=== PATIENT | female | born 1940 | race Caucasian/White ===

== ENCOUNTER 2020-07-08 19:00 | Outpatient (REF) | payer MEDICARE, SELFPAY ==
[2020-07-08 22:13] LABS: HCT 38.3 % (36.0-46.0); HGB 11.9 g/dL (11.2-15.7); MCH 28.6 pg (27.0-33.0); MCHC 31.1 % (32.0-36.0); MCV 92.1 fL (80-95); MPV 11.3 fL (8.0-11.0); Platelet Count 187 10^3/uL (130-400); RBC 4.16 10^6/uL (3.93-5.22); RDW 12.2 % (11.7-14.6); RDW-SD 41.4 fL; WBC 6.35 10^3/uL (4.4-10.8)
[2020-07-08 22:35] LABS: Anion Gap 4.2 mmol/L (3-11); CO2 36.8 mmol/L (21.0-32.0); CREATININE 0.6 mg/dL (0.55-1.02); Calcium 8.6 mg/dL (8.5-10.1); Calculated LDL 71 mg/dL (<100); Chloride 103 mmol/L (98-107); Cholesterol 144 mg/dL (<200); Glucose 128 mg/dL (74-106); HDL Cholesterol 55 mg/dL (40-60); Potassium 4.1 mmol/L (3.5-5.1); Sodium 144 mmol/L (136-145); Triglyceride 90 mg/dL (<150)
[2020-07-08 22:47] LABS: BUN 14 mg/dL (7-18)
== END 2020-07-08 19:01 | disposition home or self-care (01) ==
LOC: NCHCN 19:00
PROVIDERS: PCP Family Medicine; Visit Provider Nurse Practitioner Family
DX: I10 Essential (primary) hypertension (principal); E78.5 Hyperlipidemia, unspecified; Z86.2 Personal history of diseases of the blood and blood-forming organs and certain disorders involving the immune mechanism
CPT/HCPCS: 80048; 80061; 85027

== ENCOUNTER 2021-02-20 16:04 | Outpatient (REF) | payer MEDICARE, SELFPAY ==
[2021-02-20 21:33] LABS: Anion Gap 5.2 mmol/L (3-11); BUN 14 mg/dL (7-18); CO2 32.8 mmol/L (21.0-32.0); CREATININE 0.6 mg/dL (0.55-1.02); Chloride 103 mmol/L (98-107); Glucose 109 mg/dL (74-106); Potassium 4.4 mmol/L (3.5-5.1); Sodium 141 mmol/L (136-145)
== END 2021-02-20 16:05 | disposition home or self-care (01) ==
LOC: NCHCN 16:04
PROVIDERS: PCP Family Medicine; Visit Provider Family Medicine
DX: J44.9 Chronic obstructive pulmonary disease, unspecified (principal)
CPT/HCPCS: 80048

== ENCOUNTER 2021-12-02 17:50 | Outpatient (REF) | payer MEDICARE, SELFPAY ==
[2021-12-02 21:28] LABS: HCT 38.6 % (36.0-46.0); MCH 28.3 pg (27.0-33.0); MCHC 31.1 % (32.0-36.0); MCV 91 fL (80-95); MPV 11.4 fL (8.0-11.0); Platelet Count 177 10^3/uL (130-400); RBC 4.24 10^6/uL (3.93-5.22); RDW 13.2 % (11.7-14.6); WBC 12.95 10^3/uL (4.4-10.8)
[2021-12-02 22:12] LABS: Anion Gap 4.7 mmol/L (3-11); BUN 19 mg/dL (7-18); CO2 31.3 mmol/L (21.0-32.0); CREATININE 0.8 mg/dL (0.55-1.02); Chloride 100 mmol/L (98-107); Estimated GFR 73.52 (mL/min/1.73m2); Glucose 120 mg/dL (74-106); Potassium 4.5 mmol/L (3.5-5.1); Sodium 136 mmol/L (136-145)
== END 2021-12-02 17:51 | disposition home or self-care (01) ==
LOC: NCHCN 17:50
PROVIDERS: PCP Family Medicine; Visit Provider Nurse Practitioner Family
DX: J44.9 Chronic obstructive pulmonary disease, unspecified (principal); J96.92 Respiratory failure, unspecified with hypercapnia
CPT/HCPCS: 80048; 85027

== ENCOUNTER 2022-05-19 16:24 | Outpatient (REF) | payer MEDICARE, SELFPAY ==
--- OUTSIDE RECORDS SUMMARY | 2022-05-19 16:32 | XMS_ITS | CCD ---
Author Name Unknown Address [address] [place] [address] [id number] Organization Unknown Address [address], [place] [id number] Care Team Providers Care Information Security Specialist Name Role Phone AUGUSTA BARAHONA Attending Physician [phone] VINI MARTINEZ Er Physician 2 [phone] UHSSEIN OSUNA (Secondary) Physician 8 [phone] GANGA Griggs Registered Nurse [phone] Vital Signs Vital Sign Value Unit Date/Time Recent/Initial ? BMI (Body Mass Index) 25.38 kg/m^2 01/14/2021 12: 47 Initial VS Weight Measured 143.3 lbs 01/14/2021 12:47 Ini tial VS Height 63 in 01/14/2021 12:47 Initial VS BSA (Body Surface Area) 1.7 m^2 01/14/2021 1 2:47 Initial VS BP Systolic 144 mmHg 01/14/2021 12:47 Initial VS BP Diastolic 65 mmHg 01/14/2021 12:47 Initia l VS Respiratory Rate 20 bpm 01/14/2021 12:47 In itial VS Heart Rate 117 bpm 01/14/2021 12:47 Initial VS O2 % BldC Oximetry 99 % 01/14/2021 12:47 Initial VS Body Temperature 39 degrees 01/14/2021 12:47 In itial VS BMI (Body Mass Index) 25.33 kg/m^2 01/15/2021 10: 39 Most Recent VS Weight Measured 143 lbs 01/15/2021 10:39 Mos t Recent VS Height 63 in 01/15/2021 10:39 Most Rec ent VS BSA (Body Surface Area) 1.7 m^2 01/15/2021 1 0:39 Most Recent VS BP Systolic 153 mmHg 01/17/2021 07:28 Most Re cent VS BP Diastolic 81 mmHg 01/17/2021 07:28 Most R ecent VS Respiratory Rate 18 bpm 01/17/2021 07:[address] Recent VS Heart Rate 94 bpm 01/17/2021 07:28 Most Rec ent VS O2 % BldC Oximetry 95 % 01/17/2021 07:28 Most Recent VS Body Temperature 36.5 degrees 01/17/2021 07:[address] Recent VS Allergies Allergy Code Allergy Type Reaction Status TETRACYCLINE 34567 Drug allergy HEAD ITCHED Active Procedures Unknown or Not Available. History of Immunizations Immunization Code Date Influenza, high dose seasonal 135 Problems Problem Code Start Date Resolved Date Status Acute and chronic respirator y failure with hypercapnia 1722402346115 Active Severe COPD 445825274 Active COPD with exacerbation 057534110 Ac tive GI bleeding 14703360 01/14/2021 Resolved Anemia 537591166 01/14/2021 Resolved Diverticulitis 626568075 01/14/2021 Resolved Chronic obstructive pulmonar y disease 24887598 01/14/2021 Resolved Carcinoma of lung 204729590 01/14/2021 Resolve d Carotid atherosclerosis 419372456 01/14/2021 R esolved Hyperlipidemia 54963818 01/14/2021 Resolved Obstructive chronic bronchit is with (acute) exacerbation 152089470 01/14/2021 Resolved Osteoporosis 11335655 01/14/2021 Resolved Personal hx of colon polyps 950868109 01/15/20 21 Resolved Generalized anxiety disorder 58276038 021 Resolved Mild cognitive impairment, so stated 927347650 01/14/2021 Resolved Dependence on continuous supplemental oxygen 09519170690811 01/14/2021 Resolved Personal hx of pneumonia 162339804 01/14/2021 Resolved Vitamin B12 deficiency 705432623 01/14/2021 Re solved Atypical CP 366884243 01/14/2021 Resolved Chronic respiratory failure with hypercapnia 806630806 11/11/2021 Resolved Peripheral vascular disease 901251977 11/12/19 22 Resolved Carotid artery disease 531479907 11/11/2021 Re solved Chronic back pain 806117810 01/14/2021 Resolve d Depression 10213941 01/14/2021 Resolved Hypertension 64419580 01/14/2021 Resolved Results BASIC METABOLIC PANEL (BMP) - Collect Date/Time: 01/16/2021 06:45 Test Name Code Test Result Test Units Test Ref Rang e GLUCOSE 2345-7 112 mg/dL L=70 H=116 BUN 3094-0 12 mg/dL L=6 H=25 CREATININE 2160-0 0.54 mg/dL L=0.51 H=0.95 SODIUM SERUM 2951-2 142 mmol/L L=136 H=145 POTASSIUM SERUM 2823-3 3.8 mmol/L L=3.4 H=5 .2 CHLORIDE SERUM 2075-0 100 mmol/L L=96 H=110 CARBON DIOXIDE (CO2) 2028-9 42 mmol/L L=22 H=34 ANION GAP 46067-9 0.3 mmol/L CALCIUM SERUM 18116-8 9.1 mg/dL L=8.2 H=10. 2 AGE 80 years eGFR (non-Afr.Amer.) 66628-0 108 mL/min eGFR (Afr-Indonesian) 92540-5 >120 mL/min BASIC METABOLIC PANEL (BMP) - Collect Date/Time: 01/15/2021 06:20 Test Name Code Test Result Test Units Test Ref Rang e GLUCOSE 2345-7 121 mg/dL L=70 H=116 BUN 3094-0 16 mg/dL L=6 H=25 CREATININE 2160-0 0.53 mg/dL L=0.51 H=0.95 SODIUM SERUM 2951-2 144 mmol/L L=136 H=145 POTASSIUM SERUM 2823-3 4.0 mmol/L L=3.4 H=5 .2 CHLORIDE SERUM 2075-0 103 mmol/L L=96 H=110 CARBON DIOXIDE (CO2) 2028-9 41 mmol/L L=22 H=34 ANION GAP 66111-7 0.2 mmol/L CALCIUM SERUM 01020-8 8.9 mg/dL L=8.2 H=10. 2 AGE 80 years eGFR (non-Afr.Amer.) 48221-5 111 mL/min eGFR (Afr-Indonesian) 51180-2 >120 mL/min COMPREHENSIVE METABOLIC PANE L (CMP) - Collect Date/Time: 01/14/2021 12:55 Test Name Code Test Result Test Units Test Ref Rang e GLUCOSE 2345-7 164 mg/dL L=70 H=116 BUN 3094-0 28 mg/dL L=6 H=25 CREATININE 2160-0 0.73 mg/dL L=0.51 H=0.95 SODIUM SERUM 2951-2 141 mmol/L L=136 H=145 POTASSIUM SERUM 2823-3 3.7 mmol/L L=3.4 H=5 .2 CHLORIDE SERUM 2075-0 99 mmol/L L=96 H=110 CARBON DIOXIDE (CO2) 2028-9 44 mmol/L L=22 H=34 ANION GAP 56349-9 -1.7 mmol/L CALCIUM SERUM 69140-6 9.2 mg/dL L=8.2 H=10. 2 BILIRUBIN TOTAL 1975-2 0.7 mg/dL L=0.0 H=1 .3 ALK. PHOS. 6768-6 95 U/L L=46 H=116 SGOT (AST) 1920-8 20 U/L L=15 H=37 SGPT (ALT) 1742-6 31 U/L L=12 H=78 TOTAL PROTEIN 2885-2 7.5 gm/dL L=6.0 H=8.0 ALBUMIN 1751-7 3.2 gm/dL L=3.4 H=5.0 AGE 80 years eGFR (non-Afr.Amer.) 78777-1 77 mL/min eGFR (Afr-Indonesian) 94742-3 93 mL/min LACTIC ACID - Collect Date/T josh: 01/14/2021 12:55 Test Name Code Test Result Test Units Test Ref Rang e LACTIC ACID 52802-3 2.2 mmol/L L=0.7 H=2.1 TROPONIN-I ADM.* - Collect D ate/Time: 01/14/2021 12:55 Test Name Code Test Result Test Units Test Ref Rang e TROPONIN-I 92196-6 <0.017 ng/mL L=0.000 H=0.06 0 TSH THYROID STIMULATING HORM ONE* - Collect Date/Time: 01/14/2021 12:55 Test Name Code Test Result Test Units Test Ref Rang e TSH 3014-8 2.885 uIU/mL L=0.360 H=3.74 0 CBC W/ DIFFERENTIAL* - Colle ct Date/Time: 01/15/2021 06:20 Test Name Code Test Result Test Units Test Ref Rang e WBC 6690-2 8.43 th/cmm L=5.00 H=10.00 NEUT % 78.3 % L=40.0 H=80.0 LYMPH % 13.5 % L=10.0 H=50.0 MONO % 04481-0 6.0 % L=2.0 H=12.0 EOS % 1.2 % L=0.0 H=8.0 BASO % 0.4 % L=0.0 H=3.0 IG % 2514-8 0.6 % L=0.0 H=1.1 NRBC % 32832-6 0.0 % L=0.0 H=0.0 NEUT abs count 751-8 6.6 th/cmm L=1.6 H=8. 4 LYMPH abs count 731-0 1.1 th/cmm L=1.5 H=4 .0 MONO abs count 742-7 0.5 th/cmm L=0.2 H=1. 0 EOS abs count 711-2 0.1 th/cmm L=0.0 H=0.5 BASO abs count 704-7 0.0 th/cmm L=0.0 H=0. 2 IG abs count 18721-0 0.1 th/cmm L=0.0 H=0.1 NRBC abs count 37227-9 0.0 mil/cmm L=0.0 H=0. 0 RBC 789-8 4.15 mil/cmm L=3.90 H=5.40 HEMOGLOBIN 718-7 11.6 gm/dL L=12.0 H=16.0 HEMATOCRIT 4544-3 40 % L=37 H=47 MCV 787-2 96 fL L=82 H=92 MCH 785-6 28.0 pg L=27.0 H=31.0 MCHC 786-4 29.1 % L=32.0 H=36.0 RDW-SD 788-0 43.2 fL L=39.0 H=49.0 PLATELET COUNT 777-3 192 th/cmm L=150 H=45 0 CBC W/ DIFFERENTIAL* - [facility] ct Date/Time: 01/14/2021 12:55 Test Name Code Test Result Test Units Test Ref Rang e WBC 6690-2 11.42 th/cmm L=5.00 H=10.00 NEUT % 81.8 % L=40.0 H=80.0 LYMPH % 10.1 % L=10.0 H=50.0 MONO % 68439-8 7.0 % L=2.0 H=12.0 EOS % 0.4 % L=0.0 H=8.0 BASO % 0.4 % L=0.0 H=3.0 IG % 2514-8 0.3 % L=0.0 H=1.1 NRBC % 80803-5 0.0 % L=0.0 H=0.0 NEUT abs count 751-8 9.4 th/cmm L=1.6 H=8. 4 LYMPH abs count 731-0 1.2 th/cmm L=1.5 H=4 .0 MONO abs count 742-7 0.8 th/cmm L=0.2 H=1. 0 EOS abs count 711-2 0.1 th/cmm L=0.0 H=0.5 BASO abs count 704-7 0.0 th/cmm L=0.0 H=0. 2 IG abs count 11465-8 0.0 th/cmm L=0.0 H=0.1 NRBC abs count 32549-1 0.0 mil/cmm L=0.0 H=0. 0 RBC 789-8 4.25 mil/cmm L=3.90 H=5.40 HEMOGLOBIN 718-7 12.1 gm/dL L=12.0 H=16.0 HEMATOCRIT 4544-3 40 % L=37 H=47 MCV 787-2 95 fL L=82 H=92 MCH 785-6 28.5 pg L=27.0 H=31.0 MCHC 786-4 30.0 % L=32.0 H=36.0 RDW-SD 788-0 42.8 fL L=39.0 H=49.0 PLATELET COUNT 777-3 199 th/cmm L=150 H=45 0 [facility] COVID RHEONIX* - Evens ect Date/Time: 01/14/2021 13:53 Test Name Code Test Result Test Units Test Ref Rang e SOURCE= Nasopharyngeal N/A Tier- SYMPTOMS N/A SARS COV2 RNA: 42115-1 NEGATIVE N/A REFERENCE RANGE: NEGAT URINALYSIS WITH REFLEX CULT IF POSITIVE* - Collect Date/Time: 01/14/2021 14:13 Test Name Code Test Result Test Units Test Ref Rang e COLLECTION MODE: STRAIGHT CATH N/A Color 5778-6 YELLOW N/A yellow Appearance 5767-9 CLEAR N/A clear Glucose urine 08075-0 NEGATIVE N/A negative mg /dl Bilirubin 5770-3 NEGATIVE N/A negative Ketones 2514-8 15 N/A negative mg/dl Spec gravity 5811-5 1.020 N/A 1.003 - 1.03 0 pH urine 2756-5 6.0 N/A 5.0 - 7.0 Protein 47097-6 TRACE N/A negative mg/dl Urobilinogen 58531-8 0.2 N/A <or= 1 EU/dl Nitrite. 5802-4 NEGATIVE N/A negative Blood 5794-3 SMALL N/A negative Leukocytes. NEGATIVE N/A negative MICROSCOPIC INDICATED N/A WBCs. 25269-2 0-5 N/A 0-5 / hpf RBCs 17410-7 5-10 N/A 0-5 / hpf Epith cells 70463-4 none N/A 0-5 / hpf Crystals none N/A none Bacteria none N/A none Mucus 8247-9 present N/A none Casts 77860-1 25-100 N/A none /lpf Cast types hyaline N/A Active Medications Medications Administered During Visit Medication Dose Units Frequency Route Date/Time of Last Dose ACETAMINOPHEN INJ IVPB: 1000MG/100ML 1000 MG X1 01/14/2021 13:1 9 SODIUM CHLORIDE 0.9% 1000ML 1000 ML X1 01/14/2021 13:19 AZITHROMYCIN IVPB: 500MG/250ML 500 MG X1 01/14/2021 15:24 CefTRIAXone IVPB: 1GM/50ML 1000 MG X1 01/14/2021 15:24 ATORVASTATIN TABLET: 40MG 40 MG BEDTIME PO 01/16/2021 19:43 ASPIRIN TABLET E.C.: 81MG 81 MG DAILY PO 01/17/2021 09:05 FERROUS SULFATE TAB: 325MG 325 MG DAILY PO 01/17/2021 09:06 SODIUM CHLORIDE 0.9% FLUSH 1 0ML SYRINGE 2 ML Q8H IVP 01/17/2021 11:4 9 ACETAMINOPHEN TABLET: 325MG 650 MG PRN Q4H PO 01/14/2021 21:25 ALBUTEROL/IPRATROP UPDRAFT:2.5/0.5MG/3ML 3 ML PRN Q4H INH 2020 00:20 ALBUTEROL/IPRATROP UPDRAFT:2.5/0.5MG/3ML 3 ML BID INH 2020 19:00 CefTRIAXone IVPB: 1GM/50ML 1 GM Q24H 01/16/2021 15:39 AZITHROMYCIN IVPB: 500MG/250ML 500 MG Q24H 01/16/2021 16:43 CefTRIAXone IVPB: 1GM/50ML 1 GM X1 01/17/2021 11:49 AZITHROMYCIN TABLET: 250MG 250 MG DAILY PO 01/17/2021 11:49 INFLUENZA HIGH DOSE INJ SYR 0.7ML 0.7 ML X1 IM 01/17/2021 12:31 Encounters Encounter Diagnosis Diagnosis Code Start Date Pneumonia, unspecified organism J189 01/14/2021 Social History Smoking Status Code Start Date End Date Former smoker [id number] Patient Decision Aids Unknown or Not Available. Discharge Instructions You were admitted to [facility] on 01/14/2021 16:12 with a principal diagnosis of Pneumonia, unspecified organism You had the following tests done:BASIC METABOLIC PANEL (BMP)BASIC METABOLIC PANEL (BMP)CBC W/ DIFFERENTIAL*URINALYSIS WITH REFLEX CULT IF POSITIVE*[facility] COVID RHEONIX*CBC W/ DIFFERENTIAL*COMPREHENSIVE METABOLIC PANEL (CMP)LACTIC ACIDTROPONIN-I ADM.*TSH THYROID STIMULATING HORMONE* You were discharged from [facility] on 01/17/2021 13:12 Should you have any questions prior to discharge, please contact a member of your healthcare team. If you have left the hospital and have any questions, please contact your primary care physician. Chief Complaint and Reason For Visit Chief Complaint Date of Onset PNEUMONIA 01/14/2021 Function Status Unknown or Not Available. Plan of Care Unknown or Not Available. Referral/Transition of Care Unknown or Not Available.
--- OUTSIDE RECORDS SUMMARY | 2022-05-19 16:32 | XMS_ITS | CCD ---
Author Name Unknown Address [address] [place] [address] [phone] Organization Unknown Address [address] [place] [address] [phone] Care Team Providers Care Coach Wirer Name Role Phone KALPESH GOLDBERG Attending Physician [phone] Vital Signs Unknown or Not Available. Allergies Allergy Code Allergy Type Reaction Status TETRACYCLINE 84103 Drug allergy HEAD ITCHED Active Procedures Unknown or Not Available. History of Immunizations Immunization Code Date Influenza, high dose seasonal 135 Problems Problem Code Start Date Resolved Date Status Acute and chronic respirator y failure with hypercapnia 7379205523457 Active Severe COPD 418548778 Active COPD with exacerbation 947945550 Ac tive Chronic respiratory failure with hypercapnia 985725466 11/11/2021 Resolved Peripheral vascular disease 209022245 11/12/19 22 Resolved Carotid artery disease 004981972 11/11/2021 Re solved Results Unknown or Not Available. Active Medications Medication Code Dose Units Frequency Route Modificatio n Start Date/Time Ipratropium [place]-Albuter ol Sulfate 0.5MG/3ML-3MG/3 ML Inhalation Solution 9450395 1 EACH TWICE A DAY INHALATION 03/19/2022 12:21 Prescription Detail 1 EACH INHALATION TWICE A DAY Vitamin B12 5000MCG Oral Tablet, Disintegrating 8776597315 2 5000 MCG ORAL 03/19/2022 12:21 Prescription Detail TAKE 5000 MCG ORAL Symbicort 160/4.5 160MCG-4.5MCG/1 Actu Inhalation Aerosol Liquid 7135750 2 PUFF BID RESP INHALATION 03/08 08:40 Prescription Detail 2 PUFF INHALATION BID RESP Ferrous Sulfate 325MG Oral Tablet 459487 325 MILLIGRAMS DAILY ORAL 09:16 Prescription Detail TAKE 325 MILLIGRAMS ORAL DAILY Multivitamin Oral Tablet 2719800158 0 1 TABLET DAILY ORAL 10/05/2019 08:50 Prescription Detail TAKE 1 TABLET ORAL DAILY Aspirin 81MG Oral Tablet, Enteric Coated 582704 81 MILLIGRAMS DAILY ORAL 05/06 09:33 Prescription Detail TAKE 81 MILLIGRAMS ORAL DAILY Atorvastatin Calcium 40MG Oral Tablet 906541 40 MILLIGRAMS BEDTIME ORAL 017 12:31 Prescription Detail TAKE 40 MILLIGRAMS ORAL BEDTIME Medications Administered During Visit Unknown or Not Available. Encounters Encounter Diagnosis Diagnosis Code Start Date Pneumonia, unspecified organism J189 03/04/2021 Social History Smoking Status Code Start Date End Date Former smoker 7800713 Patient Decision Aids Unknown or Not Available. Discharge Instructions You were admitted to on 03/04/2021 09:55 with a principal diagnosis of Pneumonia, unspecified organism You were discharged from on 03/04/2021 09:55 Should you have any questions prior to discharge, please contact a member of your healthcare team. If you have left the hospital and have any questions, please contact your primary care physician. Chief Complaint and Reason For Visit Chief Complaint Date of Onset PNEUMONIA LT LOWER LOBE Function Status Unknown or Not Available. Plan of Care Unknown or Not Available. Referral/Transition of Care Unknown or Not Available.
--- OUTSIDE RECORDS SUMMARY | 2022-05-19 16:32 | XMS_ITS | CCD ---
Author Name Unknown Address [address] [place] [address] [phone] Organization Unknown Address [address] [place] [address] [phone] Care Team Providers Care Daycare Assistant Name Role Phone JENNIE CAMERON Norberto Attending Physician [phone] Vital Signs Unknown or Not Available. Allergies Allergy Code Allergy Type Reaction Status TETRACYCLINE 64523 Drug allergy HEAD ITCHED Active Procedures Unknown or Not Available. History of Immunizations Immunization Code Date Influenza, high dose seasonal 135 Problems Problem Code Start Date Resolved Date Status Acute and chronic respirator y failure with hypercapnia 3936362751546 Active Severe COPD 771563829 Active COPD with exacerbation 644680737 Ac tive Chronic respiratory failure with hypercapnia 620067663 11/11/2021 Resolved Peripheral vascular disease 756080732 11/12/19 22 Resolved Carotid artery disease 967572160 11/11/2021 Re solved Results Unknown or Not Available. Active Medications Medication Code Dose Units Frequency Route Modificatio n Start Date/Time Ipratropium [place]-Albuter ol Sulfate 0.5MG/3ML-3MG/3 ML Inhalation Solution 2416903 1 EACH TWICE A DAY INHALATION 03/19/2022 12:21 Prescription Detail 1 EACH INHALATION TWICE A DAY Vitamin B12 5000MCG Oral Tablet, Disintegrating 0616583060 2 5000 MCG ORAL 03/19/2022 12:21 Prescription Detail TAKE 5000 MCG ORAL Symbicort 160/4.5 160MCG-4.5MCG/1 Actu Inhalation Aerosol Liquid 2450258 2 PUFF BID RESP INHALATION 03/08 08:40 Prescription Detail 2 PUFF INHALATION BID RESP Ferrous Sulfate 325MG Oral Tablet 800868 325 MILLIGRAMS DAILY ORAL 09:16 Prescription Detail TAKE 325 MILLIGRAMS ORAL DAILY Multivitamin Oral Tablet 4573394189 0 1 TABLET DAILY ORAL 10/05/2019 08:50 Prescription Detail TAKE 1 TABLET ORAL DAILY Aspirin 81MG Oral Tablet, Enteric Coated 708848 81 MILLIGRAMS DAILY ORAL 05/06 09:33 Prescription Detail TAKE 81 MILLIGRAMS ORAL DAILY Atorvastatin Calcium 40MG Oral Tablet 588728 40 MILLIGRAMS BEDTIME ORAL 017 12:31 Prescription Detail TAKE 40 MILLIGRAMS ORAL BEDTIME Medications Administered During Visit Unknown or Not Available. Encounters Encounter Diagnosis Diagnosis Code Start Date Chronic obstructive pulmonar y disease with (acute) exacerbation J441 11/11/2021 Social History Smoking Status Code Start Date End Date Former smoker 3785485 Patient Decision Aids Unknown or Not Available. Discharge Instructions You were admitted to [facility] on 11/11/2021 11:39 with a principal diagnosis of Chronic obstructive pulmonary disease with (acute) exacerbation You were discharged from [facility] on 11/11/2021 22:28 Should you have any questions prior to discharge, please contact a member of your healthcare team. If you have left the hospital and have any questions, please contact your primary care physician. Chief Complaint and Reason For Visit Unknown or Not Available. Function Status Unknown or Not Available. Plan of Care Unknown or Not Available. Referral/Transition of Care Unknown or Not Available.
--- OUTSIDE RECORDS SUMMARY | 2022-05-19 16:32 | XMS_ITS | CCD ---
Author Name Unknown Address [address] [place] [address] [phone] Organization Unknown Address [address] [place] [address] [phone] Care Team Providers Care Multi Spindle Operator Name Role Phone AUGUSTA BARAHONA Attending Physician [phone] HUSSEIN OSUNA (Secondary) Physician [phone] Vital Signs Unknown or Not Available. Allergies Allergy Code Allergy Type Reaction Status TETRACYCLINE 63641 Drug allergy HEAD ITCHED Active Procedures Unknown or Not Available. History of Immunizations Immunization Code Date Influenza, high dose seasonal 135 Problems Problem Code Start Date Resolved Date Status Acute and chronic respirator y failure with hypercapnia 0783632816626 Active Severe COPD 004418724 Active COPD with exacerbation 769916323 Ac tive GI bleeding 45017988 01/14/2021 Resolved Anemia 666318454 01/14/2021 Resolved Diverticulitis 673220335 01/14/2021 Resolved Chronic obstructive pulmonar y disease 18795266 01/14/2021 Resolved Carcinoma of lung 756447953 01/14/2021 Resolve d Carotid atherosclerosis 961592871 01/14/2021 R esolved Hyperlipidemia 59365875 01/14/2021 Resolved Obstructive chronic bronchit is with (acute) exacerbation 496004952 01/14/2021 Resolved Osteoporosis 33787435 01/14/2021 Resolved Personal hx of colon polyps 507685034 01/15/20 21 Resolved Generalized anxiety disorder 81512243 021 Resolved Mild cognitive impairment, so stated 274049138 01/14/2021 Resolved Dependence on continuous supplemental oxygen 32011661312036 01/14/2021 Resolved Personal hx of pneumonia 803923815 01/14/2021 Resolved Vitamin B12 deficiency 966147904 01/14/2021 Re solved Atypical CP 920656156 01/14/2021 Resolved Chronic respiratory failure with hypercapnia 089224056 11/11/2021 Resolved Peripheral vascular disease 642286487 11/12/19 22 Resolved Carotid artery disease 633486920 11/11/2021 Re solved Chronic back pain 656399991 01/14/2021 Resolve d Depression 98025524 01/14/2021 Resolved Hypertension 13836632 01/14/2021 Resolved Results Unknown or Not Available. Active Medications Medication Code Dose Units Frequency Route Modificatio n Start Date/Time Ipratropium [place]-Albuter ol Sulfate 0.5MG/3ML-3MG/3 ML Inhalation Solution 9704635 1 EACH TWICE A DAY INHALATION 03/19/2022 12:21 Prescription Detail 1 EACH INHALATION TWICE A DAY Vitamin B12 5000MCG Oral Tablet, Disintegrating 3706506285 2 5000 MCG ORAL 03/19/2022 12:21 Prescription Detail TAKE 5000 MCG ORAL Symbicort 160/4.5 160MCG-4.5MCG/1 Actu Inhalation Aerosol Liquid 7746327 2 PUFF BID RESP INHALATION 03/08 08:40 Prescription Detail 2 PUFF INHALATION BID RESP Ferrous Sulfate 325MG Oral Tablet 129483 325 MILLIGRAMS DAILY ORAL 09:16 Prescription Detail TAKE 325 MILLIGRAMS ORAL DAILY Multivitamin Oral Tablet 8840850927 0 1 TABLET DAILY ORAL 10/05/2019 08:50 Prescription Detail TAKE 1 TABLET ORAL DAILY Aspirin 81MG Oral Tablet, Enteric Coated 270980 81 MILLIGRAMS DAILY ORAL 05/06 09:33 Prescription Detail TAKE 81 MILLIGRAMS ORAL DAILY Atorvastatin Calcium 40MG Oral Tablet 252777 40 MILLIGRAMS BEDTIME ORAL 017 12:31 Prescription Detail TAKE 40 MILLIGRAMS ORAL BEDTIME Medications Administered During Visit Unknown or Not Available. Encounters Encounter Diagnosis Diagnosis Code Start Date Pneumonia [id number] 01/14/2021 Social History Unknown or Not Available. Patient Decision Aids Unknown or Not Available. Discharge Instructions You were admitted to [facility] on 01/14/2021 12:32 with a principal diagnosis of Pneumonia, unspecified organism You were discharged from [facility] on 01/14/2021 16:12 Should you have any questions prior to [...]
--- OUTSIDE RECORDS SUMMARY | 2022-05-19 16:32 | XMS_ITS | CCD ---
Author Name Unknown Address [address] [place] [address] [phone] Organization Unknown Address [address] [place] [address] [phone] Care Team Providers Care [employer]orer [employer] Name Role Phone AUGUSTA BARAHONA Attending Physician [phone] JENNIE CAMERON Er Physician [phone] JENNIE CAMERON Rounding (Secondary) Physician [phone] FKeya, PAULINA Antoine Registered Nurse [phone] Gama, HERRERA Lockett Registered Nurse [phone] W., CARRIE Registered Nurse [phone] Jerry., SALONI Registered Nurse [phone] Vital Signs Vital Sign Value Unit Date/Time Recent/Initial ? BMI (Body Mass Index) 24.6 kg/m^2 11/11/2021 11: 41 Initial VS Weight Measured 134.48 lbs 11/11/2021 11:41 Ini tial VS Height 62 in 11/11/2021 11:41 Initial VS BSA (Body Surface Area) 1.63 m^2 11/11/2021 1 1:41 Initial VS BP Systolic 115 mmHg 11/11/2021 11:41 Initial VS BP Diastolic 60 mmHg 11/11/2021 11:41 Initia l VS Respiratory Rate 22 bpm 11/11/2021 11:41 In itial VS Heart Rate 124 bpm 11/11/2021 11:41 Initial VS O2 % BldC Oximetry 90 % 11/11/2021 11:41 Initial VS Body Temperature 37.2 degrees 11/11/2021 11:41 In itial VS BMI (Body Mass Index) 24.02 kg/m^2 11/13/2021 13: 58 Most Recent VS Weight Measured 135.61 lbs 11/13/2021 13:58 Mos t Recent VS Height 63 in 11/13/2021 13:58 Most Rec ent VS BSA (Body Surface Area) 1.65 m^2 11/13/2021 1 3:58 Most Recent VS BP Systolic 146 mmHg 11/17/2021 12:04 Most Re cent VS BP Diastolic 52 mmHg 11/17/2021 12:04 Most R ecent VS Respiratory Rate 20 bpm 11/17/2021 12:[address] Recent VS Heart Rate 89 bpm 11/17/2021 12:04 Most Rec ent VS O2 % BldC Oximetry 91 % 11/17/2021 12:04 Most Recent VS Body Temperature 36.7 degrees 11/17/2021 12:[address] Recent VS Allergies Allergy Code Allergy Type Reaction Status TETRACYCLINE 56972 Drug allergy HEAD ITCHED Active Procedures Unknown or Not Available. History of Immunizations Immunization Code Date Influenza, high dose seasonal 135 Problems Problem Code Start Date Resolved Date Status Acute and chronic respirator y failure with hypercapnia 5207079106375 Active Severe COPD 241698185 Active COPD with exacerbation 541794248 Ac tive Chronic respiratory failure with hypercapnia 344909899 11/11/2021 Resolved Peripheral vascular disease 434005597 11/12/19 22 Resolved Carotid artery disease 427299405 11/11/2021 Re solved Results BASIC METABOLIC PANEL (BMP) - Collect Date/Time: 11/15/2021 06:35 Test Name Code Test Result Test Units Test Ref Rang e GLUCOSE 2345-7 96 mg/dL L=70 H=116 BUN 3094-0 21 mg/dL L=6 H=25 CREATININE 2160-0 0.45 mg/dL L=0.51 H=0.95 SODIUM SERUM 2951-2 142 mmol/L L=136 H=145 POTASSIUM SERUM 2823-3 3.8 mmol/L L=3.4 H=5 .2 CHLORIDE SERUM 2075-0 104 mmol/L L=96 H=110 CARBON DIOXIDE (CO2) 2028-9 36 mmol/L L=22 H=34 ANION GAP 34148-8 1.9 mmol/L CALCIUM SERUM 02625-2 8.4 mg/dL L=8.2 H=10. 2 AGE 81 years eGFR (non-Afr.Amer.) 97223-0 >120 mL/min eGFR (Afr-French) 96180-5 >120 mL/min BASIC METABOLIC PANEL (BMP) - Collect Date/Time: 11/14/2021 08:15 Test Name Code Test Result Test Units Test Ref Rang e GLUCOSE 2345-7 108 mg/dL L=70 H=116 BUN 3094-0 30 mg/dL L=6 H=25 CREATININE 2160-0 0.59 mg/dL L=0.51 H=0.95 SODIUM SERUM 2951-2 144 mmol/L L=136 H=145 POTASSIUM SERUM 2823-3 3.7 mmol/L L=3.4 H=5 .2 CHLORIDE SERUM 2075-0 102 mmol/L L=96 H=110 CARBON DIOXIDE (CO2) 2028-9 39 mmol/L L=22 H=34 ANION GAP 18475-8 2.9 mmol/L CALCIUM SERUM 93619-2 9.0 mg/dL L=8.2 H=10. 2 AGE 81 years eGFR (non-Afr.Amer.) 91075-3 98 mL/min eGFR (Afr-French) 98354-5 118 mL/min BASIC METABOLIC PANEL (BMP) - Collect Date/Time: 11/13/2021 14:00 Test Name Code Test Result Test Units Test Ref Rang e GLUCOSE 2345-7 190 mg/dL L=70 H=116 BUN 3094-0 28 mg/dL L=6 H=25 CREATININE 2160-0 0.55 mg/dL L=0.51 H=0.95 SODIUM SERUM 2951-2 142 mmol/L L=136 H=145 POTASSIUM SERUM 2823-3 4.0 mmol/L L=3.4 H=5 .2 CHLORIDE SERUM 2075-0 101 mmol/L L=96 H=110 CARBON DIOXIDE (CO2) 2028-9 36 mmol/L L=22 H=34 ANION GAP 84908-7 5.0 mmol/L CALCIUM SERUM 29425-9 9.0 mg/dL L=8.2 H=10. 2 AGE 81 years eGFR (non-Afr.Amer.) 46813-9 106 mL/min eGFR (Afr-French) 85289-0 >120 mL/min BASIC METABOLIC PANEL (BMP) - Collect Date/Time: 11/13/2021 14:00 Test Name Code Test Result Test Units Test Ref Rang e GLUCOSE 2345-7 190 mg/dL L=70 H=116 BUN 3094-0 28 mg/dL L=6 H=25 CREATININE 2160-0 0.55 mg/dL L=0.51 H=0.95 SODIUM SERUM 2951-2 142 mmol/L L=136 H=145 POTASSIUM SERUM 2823-3 4.0 mmol/L L=3.4 H=5 .2 CHLORIDE SERUM 2075-0 101 mmol/L L=96 H=110 CARBON DIOXIDE (CO2) 2028-9 36 mmol/L L=22 H=34 ANION GAP 52417-3 5.0 mmol/L CALCIUM SERUM 07164-4 9.0 mg/dL L=8.2 H=10. 2 AGE 81 years eGFR (non-Afr.Amer.) 04459-8 106 mL/min eGFR (Afr-French) 08496-4 >120 mL/min BASIC METABOLIC PANEL (BMP) - Collect Date/Time: 11/12/2021 06:15 Test Name Code Test Result Test Units Test Ref Rang e GLUCOSE 2345-7 98 mg/dL L=70 H=116 BUN 3094-0 20 mg/dL L=6 H=25 CREATININE 2160-0 0.62 mg/dL L=0.51 H=0.95 SODIUM SERUM 2951-2 146 mmol/L L=136 H=145 POTASSIUM SERUM 2823-3 4.1 mmol/L L=3.4 H=5 .2 CHLORIDE SERUM 2075-0 102 mmol/L L=96 H=110 CARBON DIOXIDE (CO2) 2028-9 38 mmol/L L=22 H=34 ANION GAP 68715-7 6.1 mmol/L CALCIUM SERUM 28293-5 9.5 mg/dL L=8.2 H=10. 2 AGE 81 years eGFR (non-Afr.Amer.) 54556-1 92 mL/min eGFR (Afr-French) 69612-4 112 mL/min COMPREHENSIVE METABOLIC PANE L (CMP) - Collect Date/Time: 11/11/2021 13:50 Test Name Code Test Result Test Units Test Ref Rang e GLUCOSE 2345-7 108 mg/dL L=70 H=116 BUN 3094-0 22 mg/dL L=6 H=25 CREATININE 2160-0 0.70 mg/dL L=0.51 H=0.95 SODIUM SERUM 2951-2 141 mmol/L L=136 H=145 POTASSIUM SERUM 2823-3 3.9 mmol/L L=3.4 H=5 .2 CHLORIDE SERUM 2075-0 99 mmol/L L=96 H=110 CARBON DIOXIDE (CO2) 2028-9 38 mmol/L L=22 H=34 ANION GAP 81628-1 3.6 mmol/L CALCIUM SERUM 02321-9 9.2 mg/dL L=8.2 H=10. 2 BILIRUBIN TOTAL 1975-2 0.9 mg/dL L=0.0 H=1 .3 ALK. PHOS. 6768-6 100 U/L L=46 H=116 SGOT (AST) 1920-8 37 U/L L=15 H=37 SGPT (ALT) 1742-6 57 U/L L=12 H=78 TOTAL PROTEIN 2885-2 7.3 gm/dL L=6.0 H=8.0 ALBUMIN 1751-7 2.8 gm/dL L=3.4 H=5.0 AGE 81 years eGFR (non-Afr.Amer.) 38596-4 80 mL/min eGFR (Afr-French) 40172-7 97 mL/min TROPONIN HIGH SENSITIVITY* - Collect Date/Time: 11/11/2021 13:50 Test Name Code Test Result Test Units Test Ref Rang e TROPONIN HS 11.8 pg/mL L=0.0 H=60.4 Specimen seq. Random N/A CBC W/ DIFFERENTIAL* - [facility] ct Date/Time: 11/14/2021 08:15 Test Name Code Test Result Test Units Test Ref Rang e WBC 6690-2 7.79 th/cmm L=5.00 H=10.00 NEUT % 69.8 % L=40.0 H=80.0 LYMPH % 21.8 % L=10.0 H=50.0 MONO % 79416-7 6.9 % L=2.0 H=12.0 EOS % 0.6 % L=0.0 H=8.0 BASO % 0.5 % L=0.0 H=3.0 IG % 2514-8 0.4 % L=0.0 H=1.1 NRBC % 90485-7 0.0 % L=0.0 H=0.0 NEUT abs count 751-8 5.4 th/cmm L=1.6 H=8. 4 LYMPH abs count 731-0 1.7 th/cmm L=1.5 H=4 .0 MONO abs count 742-7 0.5 th/cmm L=0.2 H=1. 0 EOS abs count 711-2 0.1 th/cmm L=0.0 H=0.5 BASO abs count 704-7 0.0 th/cmm L=0.0 H=0. 2 IG abs count 43871-9 0.0 th/cmm L=0.0 H=0.1 NRBC abs count 39958-0 0.0 mil/cmm L=0.0 H=0. 0 RBC 789-8 4.05 mil/cmm L=3.90 H=5.40 HEMOGLOBIN 718-7 11.5 gm/dL L=12.0 H=16.0 HEMATOCRIT 4544-3 37 % L=37 H=47 MCV 787-2 92 fL L=82 H=92 MCH 785-6 28.4 pg L=27.0 H=31.0 MCHC 786-4 30.8 % L=32.0 H=36.0 RDW-SD 788-0 41.0 fL L=39.0 H=49.0 PLATELET COUNT 777-3 221 th/cmm L=150 H=45 0 CBC W/ DIFFERENTIAL* - [facility] ct Date/Time: 11/12/2021 06:15 Test Name Code Test Result Test Units Test Ref Rang e WBC 6690-2 9.08 th/cmm L=5.00 H=10.00 NEUT % 79.6 % L=40.0 H=80.0 LYMPH % 13.7 % L=10.0 H=50.0 MONO % 82789-5 5.7 % L=2.0 H=12.0 EOS % 0.1 % L=0.0 H=8.0 BASO % 0.3 % L=0.0 H=3.0 IG % 2514-8 0.6 % L=0.0 H=1.1 NRBC % 84784-1 0.0 % L=0.0 H=0.0 NEUT abs count 751-8 7.2 th/cmm L=1.6 H=8. 4 LYMPH abs count 731-0 1.2 th/cmm L=1.5 H=4 .0 MONO abs count 742-7 0.5 th/cmm L=0.2 H=1. 0 EOS abs count 711-2 0.0 th/cmm L=0.0 H=0.5 BASO abs count 704-7 0.0 th/cmm L=0.0 H=0. 2 IG abs count 77334-1 0.1 th/cmm L=0.0 H=0.1 NRBC abs count 31913-4 0.0 mil/cmm L=0.0 H=0. 0 RBC 789-8 4.59 mil/cmm L=3.90 H=5.40 HEMOGLOBIN 718-7 13.2 gm/dL L=12.0 H=16.0 HEMATOCRIT 4544-3 43 % L=37 H=47 MCV 787-2 93 fL L=82 H=92 MCH 785-6 28.8 pg L=27.0 H=31.0 MCHC 786-4 30.8 % L=32.0 H=36.0 RDW-SD 788-0 41.8 fL L=39.0 H=49.0 PLATELET COUNT 777-3 247 th/cmm L=150 H=45 0 CBC W/ DIFFERENTIAL* - [facility] ct Date/Time: 11/11/2021 12:50 Test Name Code Test Result Test Units Test Ref Rang e WBC 6690-2 9.32 th/cmm L=5.00 H=10.00 NEUT % 79.4 % L=40.0 H=80.0 LYMPH % 12.2 % L=10.0 H=50.0 MONO % 88881-8 7.4 % L=2.0 H=12.0 EOS % 0.4 % L=0.0 H=8.0 BASO % 0.3 % L=0.0 H=3.0 IG % 2514-8 0.3 % L=0.0 H=1.1 NRBC % 28063-0 0.0 % L=0.0 H=0.0 NEUT abs count 751-8 7.4 th/cmm L=1.6 H=8. 4 LYMPH abs count 731-0 1.1 th/cmm L=1.5 H=4 .0 MONO abs count 742-7 0.7 th/cmm L=0.2 H=1. 0 EOS abs count 711-2 0.0 th/cmm L=0.0 H=0.5 BASO abs count 704-7 0.0 th/cmm L=0.0 H=0. 2 IG abs count 33404-3 0.0 th/cmm L=0.0 H=0.1 NRBC abs count 41497-7 0.0 mil/cmm L=0.0 H=0. 0 RBC 789-8 4.92 mil/cmm L=3.90 H=5.40 HEMOGLOBIN 718-7 13.9 gm/dL L=12.0 H=16.0 HEMATOCRIT 4544-3 45 % L=37 H=47 MCV 787-2 91 fL L=82 H=92 MCH 785-6 28.3 pg L=27.0 H=31.0 MCHC 786-4 31.2 % L=32.0 H=36.0 RDW-SD 788-0 43.8 fL L=39.0 H=49.0 PLATELET COUNT 777-3 256 th/cmm L=150 H=45 0 [facility] COVID GENEXPERT* - Co llect Date/Time: 11/11/2021 12:50 Test Name Code Test Result Test Units Test Ref Rang e COVID 59915-0 NEGATIVE N/A Normal: Negati ve Tier- 51941-4 SYMPTOMS N/A ORDER VENOUS BLOOD GAS* - Co llect Date/Time: 11/14/2021 11:25 Test Name Code Test Result Test Units Test Ref Rang e pH (venous) 2746-6 7.43 L=7.38 H=7.46 PCO2 (venous) 2703-7 63.0 mm Hg L=41.0 H=51 .0 PO2 (venous) 2705-2 28 mm Hg L=30 H=50 HCO3 1960-4 43 mmol/L L=22 H=26 TCO2 (venous) 3533-7 45 mmol/L L=22 H=28 BASE EXCESS (venous) 3097-3 18 mmol/L L=-2 H=3 Specimen type: VENOUS N/A ORDER VENOUS BLOOD GAS* - Co llect Date/Time: 11/14/2021 00:45 Test Name Code Test Result Test Units Test Ref Rang e pH (venous) 2746-6 7.34 L=7.38 H=7.46 PCO2 (venous) 2703-7 79.0 mm Hg L=41.0 H=51 .0 PO2 (venous) 2705-2 37 mm Hg L=30 H=50 HCO3 1960-4 42 mmol/L L=22 H=26 TCO2 (venous) 3533-7 45 mmol/L L=22 H=28 BASE EXCESS (venous) 3097-3 16 mmol/L L=-2 H=3 Specimen type: VENOUS N/A ORDER VENOUS BLOOD GAS* - Co llect Date/Time: 11/13/2021 14:00 Test Name Code Test Result Test Units Test Ref Rang e pH (venous) 2746-6 7.33 L=7.38 H=7.46 PCO2 (venous) 2703-7 79.0 mm Hg L=41.0 H=51 .0 PO2 (venous) 2705-2 68 mm Hg L=30 H=50 HCO3 1960-4 41 mmol/L L=22 H=26 TCO2 (venous) 3533-7 44 mmol/L L=22 H=28 BASE EXCESS (venous) 3097-3 15 mmol/L L=-2 H=3 Specimen type: VENOUS N/A ORDER VENOUS BLOOD GAS* - Pr llect Date/Time: 11/12/2021 10:21 Test Name Code Test Result Test Units Test Ref Rang e pH (venous) 2746-6 7.38 L=7.38 H=7.46 PCO2 (venous) 2703-7 67.0 mm Hg L=41.0 H=51 .0 PO2 (venous) 2705-2 36 mm Hg L=30 H=50 HCO3 1960-4 39 mmol/L L=22 H=26 TCO2 (venous) 3533-7 41 mmol/L L=22 H=28 BASE EXCESS (venous) 3097-3 14 mmol/L L=-2 H=3 Specimen type: VENOUS N/A Assist vent. 0 N/A ORDER VENOUS BLOOD GAS* - Co llect Date/Time: 11/11/2021 13:50 Test Name Code Test Result Test Units Test Ref Rang e pH (venous) 2746-6 7.33 L=7.38 H=7.46 PCO2 (venous) 2703-7 77.3 mm Hg L=41.0 H=51 .0 PO2 (venous) 2705-2 29 mm Hg L=30 H=50 HCO3 1960-4 41 mmol/L L=22 H=26 TCO2 (venous) 3533-7 43 mmol/L L=22 H=28 BASE EXCESS (venous) 3097-3 15 mmol/L L=-2 H=3 Specimen type: VENOUS N/A Active Medications Medication Code Dose Units Frequency Route Modificatio n Start Date/Time Ipratropium [place]-Albuter ol Sulfate 0.5MG/3ML-3MG/3 ML Inhalation Solution 2441344 1 EACH TWICE A DAY INHALATION 03/19/2022 12:21 Prescription Detail 1 EACH INHALATION TWICE A DAY Vitamin B12 5000MCG Oral Tablet, Disintegrating 3262804050 2 5000 MCG ORAL 03/19/2022 12:21 Prescription Detail TAKE 5000 MCG ORAL Symbicort 160/4.5 160MCG-4.5MCG/1 Actu Inhalation Aerosol Liquid 8259421 2 PUFF BID RESP INHALATION 03/08 08:40 Prescription Detail 2 PUFF INHALATION BID RESP Ferrous Sulfate 325MG Oral Tablet 998199 325 MILLIGRAMS DAILY ORAL 09:16 Prescription Detail TAKE 325 MILLIGRAMS ORAL DAILY Multivitamin Oral Tablet 6073227939 0 1 TABLET DAILY ORAL 10/05/2019 08:50 Prescription Detail TAKE 1 TABLET ORAL DAILY Aspirin 81MG Oral Tablet, Enteric Coated 413076 81 MILLIGRAMS DAILY ORAL 05/06 09:33 Prescription Detail TAKE 81 MILLIGRAMS ORAL DAILY Atorvastatin Calcium 40MG Oral Tablet 216942 40 MILLIGRAMS BEDTIME ORAL 017 12:31 Prescription Detail TAKE 40 MILLIGRAMS ORAL BEDTIME Medications Administered During Visit Medication Dose Units Frequency Route Date/Time of Last Dose ALBUTEROL HFA INHALER 8.5GM: 90MCG 1 PUFF X1 INH 11/11/2021 13:0 0 MethylPREDNISolone SUC INJ SDV:125MG/2ML 40 MG X1 IVP 11/11/2021 15: 14 SODIUM CHLORIDE 0.9% 500ML 500 ML X1 IV 11/11/2021 18:23 ASPIRIN TABLET E.C.: 81MG 81 MG DAILY WITH ROSITA D PO 11/12/2021 09:00 ENOXAPARIN INJ SYRINGE: 30MG/0.3ML 30 MG Q24H SUBQ 11/12/2021 09:0 0 MethylPREDNISolone SUC INJ SDV:40MG/1ML 40 MG DAILY IVP 11/12/2021 09:1 7 SODIUM CHLORIDE 0.9% FLUSH 1 0ML SYRINGE 2 ML Q8H IVP 11/15/2021 21:2 8 POLYETHYLENE GLYCOL PACKET 3350:17GM 17 GRAMS PRN DAILY PO 11/15/2021 11:3 4 ALBUTEROL/IPRATROP UPDRAFT:2.5/0.5MG/3ML 3 ML PRN Q4H INH 2021 15:00 BUDESONIDE UPDRAFT: 0.5MG/2ML 0.5 MG BID RESP INH 11/17/2021 07:30 ARFORMOTEROL NEB SOLN: 15MCG/2ML 15 MCG BID RESP INH 11/17/2021 07:3 0 ATORVASTATIN TABLET: 40MG 40 MG BEDTIME PO 11/16/2021 22:09 ENOXAPARIN INJ SYRINGE: 30MG/0.3ML 30 MG Q24H SUBQ 11/17/2021 08:4 5 MethylPREDNISolone SUC INJ SDV:40MG/1ML 40 MG DAILY IVP 11/14/2021 09:1 4 ASPIRIN TABLET E.C.: 81MG 81 MG DAILY PO 11/17/2021 08:45 ALBUTEROL/IPRATROP UPDRAFT:2.5/0.5MG/3ML 3 ML BID INH 2021 07:30 SODIUM CHLORIDE 0.9% 500ML 500 ML X1 IV 11/13/2021 10:52 LORazepam INJ SYRINGE: 2MG/ML 0.5 MG PRN Q4H IVP 11/13/2021 23:21 LORazepam INJ SYRINGE: 2MG/ML 0.5 MG PRN X1 IVP 11/13/2021 21:33 SODIUM CHLORIDE 0.9% 1000ML 1000 ML CONT IV 11/15/2021 01:17 PredniSONE TABLET: 20MG 20 MG BID WITH FOOD PO 11/17/2021 08:45 LOSARTAN TABLET: 50MG 50 MG X1 PO 11/17/2021 12:50 Encounters Encounter Diagnosis Diagnosis Code Start Date Chronic obstructive pulmonar y disease with (acute) exacerbation J441 11/11/2021 Social History Smoking Status Code Start Date End Date Former smoker [id number] Patient Decision Aids Unknown or Not Available. Discharge Instructions You were admitted to [facility] on 11/11/2021 17:36 with a principal diagnosis of Chronic obstructive pulmonary disease with (acute) exacerbation You had the following tests done:BASIC METABOLIC PANEL (BMP)BASIC METABOLIC PANEL (BMP)CBC W/ DIFFERENTIAL*ORDER VENOUS BLOOD GAS*BASIC METABOLIC PANEL (BMP)BASIC METABOLIC PANEL (BMP)ORDER VENOUS BLOOD GAS*BASIC METABOLIC PANEL (BMP)CBC W/ DIFFERENTIAL*COMPREHENSIVE METABOLIC PANEL (CMP)ORDER VENOUS BLOOD GAS*TROPONIN HIGH SENSITIVITY*CBC W/ DIFFERENTIAL*[facility] COVID GENEXPERT* You were discharged from [facility] on 11/17/2021 16:00 Should you have any questions prior to discharge, please contact a member of your healthcare team. If you have left the hospital and have any questions, please contact your primary care physician. Chief Complaint and Reason For Visit Chief Complaint Date of Onset COPD EXACERBATION 11/12/2021 Function Status Unknown or Not Available. Plan of Care Unknown or Not Available. Referral/Transition of Care Unknown or Not Available.
--- OUTSIDE RECORDS SUMMARY | 2022-05-19 16:32 | XMS_ITS | CCD ---
Author Name Unknown Address [address] [place] [address] [phone] Organization Unknown Address [address] [place] [address] [phone] Care Team Providers Care Can Technician Name Role Phone AUGUSTA BARAHONA Attending Physician [phone] AUGUSTA BARAHONA Rounding (Secondary) Physician [phone] Vital Signs Unknown or Not Available. Allergies Allergy Code Allergy Type Reaction Status TETRACYCLINE 71664 Drug allergy HEAD ITCHED Active Procedures Unknown or Not Available. History of Immunizations Immunization Code Date Influenza, high dose seasonal 135 Problems Problem Code Start Date Resolved Date Status Acute and chronic respirator y failure with hypercapnia 3782842219759 Active Severe COPD 894871446 Active COPD with exacerbation 746062865 Ac tive GI bleeding 99416110 01/14/2021 Resolved Anemia 388530612 01/14/2021 Resolved Diverticulitis 193529052 01/14/2021 Resolved Chronic obstructive pulmonar y disease 82461808 01/14/2021 Resolved Carcinoma of lung 871234814 01/14/2021 Resolve d Carotid atherosclerosis 437487755 01/14/2021 R esolved Hyperlipidemia 70878654 01/14/2021 Resolved Obstructive chronic bronchit is with (acute) exacerbation 801749592 01/14/2021 Resolved Osteoporosis 92779603 01/14/2021 Resolved Personal hx of colon polyps 008203589 01/15/20 21 Resolved Generalized anxiety disorder 64428108 021 Resolved Mild cognitive impairment, so stated 466263621 01/14/2021 Resolved Dependence on continuous supplemental oxygen 30222967524829 01/14/2021 Resolved Personal hx of pneumonia 803862293 01/14/2021 Resolved Vitamin B12 deficiency 338932851 01/14/2021 Re solved Atypical CP 741543390 01/14/2021 Resolved Chronic respiratory failure with hypercapnia 131320032 11/11/2021 Resolved Peripheral vascular disease 409049929 11/12/19 22 Resolved Carotid artery disease 257386862 11/11/2021 Re solved Chronic back pain 203764127 01/14/2021 Resolve d Depression 08216040 01/14/2021 Resolved Hypertension 35412565 01/14/2021 Resolved Results Unknown or Not Available. Active Medications Medication Code Dose Units Frequency Route Modificatio n Start Date/Time Ipratropium [place]-Albuter ol Sulfate 0.5MG/3ML-3MG/3 ML Inhalation Solution 6455666 1 EACH TWICE A DAY INHALATION 03/19/2022 12:21 Prescription Detail 1 EACH INHALATION TWICE A DAY Vitamin B12 5000MCG Oral Tablet, Disintegrating 0849360790 2 5000 MCG ORAL 03/19/2022 12:21 Prescription Detail TAKE 5000 MCG ORAL Symbicort 160/4.5 160MCG-4.5MCG/1 Actu Inhalation Aerosol Liquid 0159614 2 PUFF BID RESP INHALATION 03/08 08:40 Prescription Detail 2 PUFF INHALATION BID RESP Ferrous Sulfate 325MG Oral Tablet 680535 325 MILLIGRAMS DAILY ORAL 09:16 Prescription Detail TAKE 325 MILLIGRAMS ORAL DAILY Multivitamin Oral Tablet 2506645530 0 1 TABLET DAILY ORAL 10/05/2019 08:50 Prescription Detail TAKE 1 TABLET ORAL DAILY Aspirin 81MG Oral Tablet, Enteric Coated 292733 81 MILLIGRAMS DAILY ORAL 05/06 09:33 Prescription Detail TAKE 81 MILLIGRAMS ORAL DAILY Atorvastatin Calcium 40MG Oral Tablet 701226 40 MILLIGRAMS BEDTIME ORAL 017 12:31 Prescription Detail TAKE 40 MILLIGRAMS ORAL BEDTIME Medications Administered During Visit Unknown or Not Available. Encounters Encounter Diagnosis Diagnosis Code Start Date Pneumonia, unspecified organism J189 01/14/2021 Social History Smoking Status Code Start Date End Date Former smoker [id number] Patient Decision Aids Unknown or Not Available. Discharge Instructions You were admitted to [facility] on 01/14/2021 23:52 with a principal diagnosis of Pneumonia, unspecified organism You were discharged from [facility] on 01/17/2021 23:53 Should you have any questions prior to [...]
--- OUTSIDE RECORDS SUMMARY | 2022-05-19 16:33 | XMS_ITS | CCD ---
Author Name Unknown Address [address] [place] [address] [phone] Organization Unknown Address [address] [place] [address] [phone] Care Team Providers Care Chute Greaser Name Role Phone HUSSEIN OSUNA Attending Physician [phone] ALBARO ACKERMAN Er Physician 0 [phone] YOSVANY Griggs Registered Nurse [phone] Vital Signs Vital Sign Value Unit Date/Time Recent/Initial ? BMI (Body Mass Index) 24.69 kg/m^2 03/27/2022 21: 08 Initial VS Weight Measured 135 lbs 03/27/2022 21:08 Ini tial VS Height 62 in 03/27/2022 21:08 Initial VS BSA (Body Surface Area) 1.64 m^2 03/27/2022 2 1:08 Initial VS BP Systolic 113 mmHg 03/27/2022 21:08 Initial VS BP Diastolic 70 mmHg 03/27/2022 21:08 Initia l VS Respiratory Rate 20 bpm 03/27/2022 21:08 In itial VS Heart Rate 109 bpm 03/27/2022 21:08 Initial VS O2 % BldC Oximetry 95 % 03/27/2022 21:08 Initial VS Body Temperature 36.5 degrees 03/27/2022 21:08 In itial VS BP Systolic 122 mmHg 03/27/2022 22:20 Most Re cent VS BP Diastolic 76 mmHg 03/27/2022 22:20 Most R ecent VS Respiratory Rate 20 bpm 03/27/2022 22:[address] Recent VS Heart Rate 104 bpm 03/27/2022 22:20 Most Rec ent VS O2 % BldC Oximetry 96 % 03/27/2022 22:20 Most Recent VS Allergies Allergy Code Allergy Type Reaction Status TETRACYCLINE [id number] Drug allergy HEAD ITCHED Active Procedures Unknown or Not Available. History of Immunizations Immunization Code Date Influenza, high dose seasonal 135 Problems Problem Code Start Date Resolved Date Status Acute and chronic respirator y failure with hypercapnia [id number] Active Severe COPD [id number] Active COPD with exacerbation [id number] Ac tive Results Unknown or Not Available. Active Medications Unknown or Not Available. Medications Administered During Visit Medication Dose Units Frequency Route Date/Time of Last Dose LIDOCAINE PATCH 5% 1 PATCH X1 TOP 0 03/27/2022 22:19 LIDOCAINE PATCH 5% 1 PATCH X1 TOP 0 03/27/2022 22:19 Encounters Encounter Diagnosis Diagnosis Code Start Date Pain in thoracic spine M546 [id number] Social History Smoking Status Code Start Date End Date Former smoker [id number] Patient Decision Aids Unknown or Not Available. Discharge Instructions You were admitted to [facility] on 03/27/2022 21:04 with a principal diagnosis of Pain in thoracic spine You were discharged from [facility] on 03/27/2022 22:30 Should you have any questions prior to discharge, please contact a member of your healthcare team. If you have left the hospital and have any questions, please contact your primary care physician. Chief Complaint and Reason For Visit Chief Complaint Date of Onset DOC ADVISED HER TO COME IN FOR ANTIBIOTI CS 03/27/2022 Function Status Unknown or Not Available. Plan of Care Unknown or Not Available. Referral/Transition of Care Unknown or Not Available.
--- OUTSIDE RECORDS SUMMARY | 2022-05-19 16:33 | XMS_ITS | CCD ---
Author Name Unknown Address [address] [place] [address] [phone] Organization Unknown Address [address] [place] [address] [phone] Care Team Providers Care Agency Sales Development Associate Name Role Phone AUGUSTA BARAHONA Attending Physician [phone] Vital Signs Unknown or Not Available. Allergies Allergy Code Allergy Type Reaction Status TETRACYCLINE 91403 Drug allergy HEAD ITCHED Active Procedures Unknown or Not Available. History of Immunizations Immunization Code Date Influenza, high dose seasonal 135 Problems Problem Code Start Date Resolved Date Status Acute and chronic respirator y failure with hypercapnia 6811305161682 Active Severe COPD 626790323 Active COPD with exacerbation 432594071 Ac tive Chronic respiratory failure with hypercapnia 137677344 11/11/2021 Resolved Peripheral vascular disease 447471534 11/12/19 22 Resolved Carotid artery disease 000252603 11/11/2021 Re solved Results Unknown or Not Available. Active Medications Medication Code Dose Units Frequency Route Modificatio n Start Date/Time Ipratropium [place]-Albuter ol Sulfate 0.5MG/3ML-3MG/3 ML Inhalation Solution 1223187 1 EACH TWICE A DAY INHALATION 03/19/2022 12:21 Prescription Detail 1 EACH INHALATION TWICE A DAY Vitamin B12 5000MCG Oral Tablet, Disintegrating 9139712488 2 5000 MCG ORAL 03/19/2022 12:21 Prescription Detail TAKE 5000 MCG ORAL Symbicort 160/4.5 160MCG-4.5MCG/1 Actu Inhalation Aerosol Liquid [id number] 2 PUFF BID RESP INHALATION 03/08 08:40 Prescription Detail 2 PUFF INHALATION BID RESP Ferrous Sulfate 325MG Oral Tablet [id number] 325 MILLIGRAMS DAILY ORAL 09:16 Prescription Detail TAKE 325 MILLIGRAMS ORAL DAILY Multivitamin Oral Tablet [id number] 0 1 TABLET DAILY ORAL 10/05/2019 08:50 Prescription Detail TAKE 1 TABLET ORAL DAILY Aspirin 81MG Oral Tablet, Enteric Coated [id number] 81 MILLIGRAMS DAILY ORAL 05/06 09:33 Prescription Detail TAKE 81 MILLIGRAMS ORAL DAILY Atorvastatin Calcium 40MG Oral Tablet 996884 40 MILLIGRAMS BEDTIME ORAL 017 12:31 Prescription Detail TAKE 40 MILLIGRAMS ORAL BEDTIME Medications Administered During Visit Unknown or Not Available. Encounters Encounter Diagnosis Diagnosis Code Start Date Chronic obstructive pulmonar y disease with (acute) exacerbation J441 11/11/2021 Social History Smoking Status Code Start Date End Date Former smoker [id number] Patient Decision Aids Unknown or Not Available. Discharge Instructions You were admitted to on 11/11/2021 02:55 with a principal diagnosis of Chronic obstructive pulmonary disease with (acute) exacerbation You were discharged from on 11/17/2021 00:00 Should you have any questions prior to [...]
--- OUTSIDE RECORDS SUMMARY | 2022-05-19 16:33 | XMS_ITS | CCD ---
Author Name Unknown Address [address] [place] [address] [phone] Organization Unknown Address [address] [place] [address] [phone] Care Team Providers Care Mathematics Professor Name Role Phone AUGUSTA BARAHONA Attending Physician [phone] Vital Signs Unknown or Not Available. Allergies Allergy Code Allergy Type Reaction Status TETRACYCLINE 80693 Drug allergy HEAD ITCHED Active Procedures Unknown or Not Available. History of Immunizations Immunization Code Date Influenza, high dose seasonal 135 Problems Problem Code Start Date Resolved Date Status Acute and chronic respirator y failure with hypercapnia 0746692448885 Active Severe COPD 832570675 Active COPD with exacerbation 891786824 Ac tive Results Unknown or Not Available. Active Medications Medication Code Dose Units Frequency Route Modificatio n Start Date/Time Ipratropium [place]-Albuter ol Sulfate 0.5MG/3ML-3MG/3 ML Inhalation Solution 9949039 1 EACH TWICE A DAY INHALATION 03/19/2022 12:21 Prescription Detail 1 EACH INHALATION TWICE A DAY Vitamin B12 5000MCG Oral Tablet, Disintegrating 9479247637 2 5000 MCG ORAL 03/19/2022 12:21 Prescription Detail TAKE 5000 MCG ORAL Symbicort 160/4.5 160MCG-4.5MCG/1 Actu Inhalation Aerosol Liquid 8669803 2 PUFF BID RESP INHALATION 03/08 08:40 Prescription Detail 2 PUFF INHALATION BID RESP Ferrous Sulfate 325MG Oral Tablet [id number] 325 MILLIGRAMS DAILY ORAL 09:16 Prescription Detail TAKE 325 MILLIGRAMS ORAL DAILY Multivitamin Oral Tablet 7809996853 0 1 TABLET DAILY ORAL 10/05/2019 08:50 Prescription Detail TAKE 1 TABLET ORAL DAILY Aspirin 81MG Oral Tablet, Enteric Coated [id number] 81 MILLIGRAMS DAILY ORAL 05/06 09:33 Prescription Detail TAKE 81 MILLIGRAMS ORAL DAILY Atorvastatin Calcium 40MG Oral Tablet 877243 40 MILLIGRAMS BEDTIME ORAL 017 12:31 Prescription Detail TAKE 40 MILLIGRAMS ORAL BEDTIME Medications Administered During Visit Unknown or Not Available. Encounters Encounter Diagnosis Diagnosis Code Start Date Acute and chronic respiratory failure with hyper capnia J9622 03/17/2022 Social History Smoking Status Code Start Date End Date Former smoker [id number] Patient Decision Aids Unknown or Not Available. Discharge Instructions You were admitted to [facility] on 03/17/2022 00:37 with a principal diagnosis of Acute and chronic respiratory failure with hypercapnia You were discharged from [facility] on 03/19/2022 00:37 Should you have any questions prior to [...]
--- OUTSIDE RECORDS SUMMARY | 2022-05-19 16:33 | XMS_ITS | CCD ---
Author Name Unknown Address [address] [place] [address] [phone] Organization Unknown Address [address] [place] [address] [phone] Care Team Providers Care Dog Food Dough Mixer Name Role Phone MIESHA GOLDBERGTACO Jerry Attending Physician [phone] Vital Signs Unknown or Not Available. Allergies Allergy Code Allergy Type Reaction Status TETRACYCLINE 49420 Drug allergy HEAD ITCHED Active Procedures Unknown or Not Available. History of Immunizations Immunization Code Date Influenza, high dose seasonal 135 Problems Problem Code Start Date Resolved Date Status Acute and chronic respirator y failure with hypercapnia 5458530538040 Active Severe COPD 357209894 Active COPD with exacerbation 000512440 Ac tive Results Unknown or Not Available. Active Medications Medication Code Dose Units Frequency Route Modificatio n Start Date/Time Ipratropium [place]-Albuter ol Sulfate 0.5MG/3ML-3MG/3 ML Inhalation Solution 2945454 1 EACH TWICE A DAY INHALATION 03/19/2022 12:21 Prescription Detail 1 EACH INHALATION TWICE A DAY Vitamin B12 5000MCG Oral Tablet, Disintegrating 1344038105 2 5000 MCG ORAL 03/19/2022 12:21 Prescription Detail TAKE 5000 MCG ORAL Symbicort 160/4.5 160MCG-4.5MCG/1 Actu Inhalation Aerosol Liquid 3704033 2 PUFF BID RESP INHALATION 03/08 08:40 Prescription Detail 2 PUFF INHALATION BID RESP Ferrous Sulfate 325MG Oral Tablet 931608 325 MILLIGRAMS DAILY ORAL 09:16 Prescription Detail TAKE 325 MILLIGRAMS ORAL DAILY Multivitamin Oral Tablet 5121803986 0 1 TABLET DAILY ORAL 10/05/2019 08:50 Prescription Detail TAKE 1 TABLET ORAL DAILY Aspirin 81MG Oral Tablet, Enteric Coated [id number] 81 MILLIGRAMS DAILY ORAL 05/06 09:33 Prescription Detail TAKE 81 MILLIGRAMS ORAL DAILY Atorvastatin Calcium 40MG Oral Tablet 884454 40 MILLIGRAMS BEDTIME ORAL 017 12:31 Prescription Detail TAKE 40 MILLIGRAMS ORAL BEDTIME Medications Administered During Visit Unknown or Not Available. Encounters Unknown or Not Available. Social History Smoking Status Code Start Date End Date Former smoker [id number] Patient Decision Aids Unknown or Not Available. Discharge Instructions You were admitted to [facility] on 03/26/2022 17:35 You were discharged from [facility] on 03/26/2022 17:35 Should you have any questions prior to [...]
--- OUTSIDE RECORDS SUMMARY | 2022-05-19 16:34 | XMS_ITS | CCD ---
Author Name Unknown Address [address] [place] [address] [phone] Organization Unknown Address [address] [place] [address] [phone] Care Team Providers Care Coal Trimmer Machine Operator Name Role Phone JAUN PARRA Attending Physician [phone] Vital Signs Unknown or Not Available. Allergies Allergy Code Allergy Type Reaction Status TETRACYCLINE 74763 Drug allergy HEAD ITCHED Active Procedures Unknown or Not Available. History of Immunizations Immunization Code Date Influenza, high dose seasonal 135 Problems Problem Code Start Date Resolved Date Status Acute and chronic respirator y failure with hypercapnia 5213867790909 Active Severe COPD 129122470 Active COPD with exacerbation 640228227 Ac tive Results Unknown or Not Available. Active Medications Medication Code Dose Units Frequency Route Modificatio n Start Date/Time Ipratropium [place]-Albuter ol Sulfate 0.5MG/3ML-3MG/3 ML Inhalation Solution 2618497 1 EACH TWICE A DAY INHALATION 03/19/2022 12:21 Prescription Detail 1 EACH INHALATION TWICE A DAY Vitamin B12 5000MCG Oral Tablet, Disintegrating 1200587458 2 5000 MCG ORAL 03/19/2022 12:21 Prescription Detail TAKE 5000 MCG ORAL Symbicort 160/4.5 160MCG-4.5MCG/1 Actu Inhalation Aerosol Liquid [id number] 2 PUFF BID RESP INHALATION 03/08 08:40 Prescription Detail 2 PUFF INHALATION BID RESP Ferrous Sulfate 325MG Oral Tablet [id number] 325 MILLIGRAMS DAILY ORAL 09:16 Prescription Detail TAKE 325 MILLIGRAMS ORAL DAILY Multivitamin Oral Tablet 3219288645 0 1 TABLET DAILY ORAL 10/05/2019 08:50 Prescription Detail TAKE 1 TABLET ORAL DAILY Aspirin 81MG Oral Tablet, Enteric Coated 347542 81 MILLIGRAMS DAILY ORAL 05/06 09:33 Prescription Detail TAKE 81 MILLIGRAMS ORAL DAILY Atorvastatin Calcium 40MG Oral Tablet 492768 40 MILLIGRAMS BEDTIME ORAL 017 12:31 Prescription Detail TAKE 40 MILLIGRAMS ORAL BEDTIME Medications Administered During Visit Unknown or Not Available. Encounters Unknown or Not Available. Social History Smoking Status Code Start Date End Date Former smoker [id number] Patient Decision Aids Unknown or Not Available. Discharge Instructions You were admitted to [facility] on 05/06/2022 12:14 You were discharged from [facility] Should you have any questions prior to discharge, please contact a member of your healthcare team. If you have left the hospital and have any questions, please contact your primary care physician. Chief Complaint and Reason For Visit Chief Complaint Date of Onset OSTEOPOROSIS Function Status Unknown or Not Available. Plan of Care Unknown or Not Available. Referral/Transition of Care Unknown or Not Available.
[2022-05-19 17:37] LABS: Vitamin D 25 Total 44.5 ng/mL (30-100)
== END 2022-05-19 16:25 | disposition home or self-care (01) ==
LOC: NCHCN 16:24
PROVIDERS: PCP Family Medicine; Visit Provider Nurse Practitioner Family
DX: M81.0 Age-related osteoporosis without current pathological fracture (principal)
CPT/HCPCS: 82306

== ENCOUNTER 2022-08-11 14:54 | Outpatient (REF) | payer MEDICARE, SELFPAY ==
[2022-08-11 14:32] LABS: HCT 43.7 % (36.0-46.0); HGB 13.7 g/dL (11.2-15.7); MCHC 31.4 % (32.0-36.0); MCV 92 fL (80-95); MPV 10.7 fL (8.0-11.0); Platelet Count 202 10^3/uL (130-400); RBC 4.73 10^6/uL (3.93-5.22); RDW 11.4 % (11.7-14.6); WBC 6.83 10^3/uL (4.4-10.8)
[2022-08-11 15:25] LABS: Anion Gap 0.8 mmol/L (3-11); BUN 13 mg/dL (7-18); CO2 37.2 mmol/L (21.0-32.0); CREATININE 0.7 mg/dL (0.55-1.02); Chloride 98 mmol/L (98-107); Glucose 120 mg/dL (74-106); Potassium 4.3 mmol/L (3.5-5.1); Sodium 136 mmol/L (136-145)
== END 2022-08-11 14:55 | disposition home or self-care (01) ==
LOC: NCHCN 14:54
PROVIDERS: PCP Family Medicine; Visit Provider Nurse Practitioner Family
DX: I10 Essential (primary) hypertension (principal); D50.9 Iron deficiency anemia, unspecified; Z87.19 Personal history of other diseases of the digestive system; R79.89 Other specified abnormal findings of blood chemistry
CPT/HCPCS: 80048; 85027